=== PATIENT | female | born 1960 | race African-American/Black ===

== ENCOUNTER 2019-12-24 23:59 | Emergency (ER) | payer BC ==
--- OUTSIDE RECORDS SUMMARY | 2019-12-25 00:26 | XMS ---
:1960 Author Organization [facility] Care Team Providers Name Role Phone FRANCK BERRY Unavailable KRISTI, PAVELA Unavailable KRISTI, PAVELA Unavailable KRISTI, PAVELA Unavailable Jaswinder Pollock Unavailable Pollock, K Unavailable Pollock, K Unavailable Pollock, K Unavailable Pollock, K Unavailable Re-disclosure Warning The records that you are about to access may contain information from federally- assisted alcohol or drug abuse programs. If such information is present, then the following federally mandated warning applies: This information has been disclosed to you from records protected by federal confidentiality rules (42 CFR part 2). The federal rules prohibit you from making any further disclosure of this information unless further disclosure is expressly permitted by the written consent of the person to whom it pertains or as otherwise permitted by 42 CFR part 2. A general authorization for the release of medical or other information is NOT sufficient for this purpose. The Federal rules restrict any use of the information to criminally investigate or prosecute any alcohol or drug abuse patient.The records that you are about to access may contain highly sensitive health information, the redisclosure of which is protected by Article 27-F of the [facility] Public Health law. If you continue you may haveaccess to information: Regarding HIV / AIDS; Provided by facilities licensed or operated by the [facility] Office of Mental Health; or Provided by the [facility] Office for People With Developmental Disabilities. If such information is present, then the following [facility] mandated warning applies: This information has been disclosed to you from confidential records which are protected by state law. State law prohibits you from making any further disclosure of this information without the specific written consent of the person to whom it pertains, or as otherwise permitted by law. Any unauthorized further disclosure in violation of state law may result in a fine or assisted sentence or both. A general authorization for the release of medical or other information is NOT sufficient authorization for further disclosure. Encounters Encounter Providers Location Date Indications Data Source(s ) Outpatient Attender: FRANCK 09/09/2019 [facility] ([place] [facility]: Jaswinder 12:00:00 AM [facility] Poll[place] EDT Insurance Providers Payer Policy type Policy ID Covered Covered alliance party's Policy Pl an name / Coverage alliance party ID relationship to Marie Inf ormation type marie BC PPO [id number] SP [id number] BLUE [id number] PT [id number] CROSS IND BLUE PPO [id number] CROSS Surgeries/Procedures Procedure Description Date Indications Data Source(s) OFFICE/OUTPATIENT VISIT, 09/09/2019 [facility] ([facility] 12:00:00 AM EDT Medical) - 09/09/2019 12:00:00 AM EDT ROUTINE VENIPUNCTURE 09/09/2019 [facility] ([place] 12:00:00 AM EDT Medical) - 09/09/2019 12:00:00 AM EDT URINALYSIS, NONAUTO 09/09/2019 [facility] ([place] W/SCOPE 12:00:00 AM EDT Medical) - 09/09/2019 12:00:00 AM EDT Results ID Date Data Source [id number] 06/12/2019 12:00:00 AM EDT [facility] Name Value Range Interpretation Code Description Data Marly rce(s) Supporting Document(s ) SARS [facility] This lab was ordered by [facility] and reported by [facility]. Procedure
[2019-12-25 00:35] VITALS: TEMP 98.3; BMI 38.4
--- NOTE | 2019-12-25 01:34 | PDOC ---
History of Present Illness - General Chief Complaint: Blood Pressure Problem Stated Complaint: HYPERTENSION Time Seen by Provider: 12/25/19 00:55 History Source: Patient - History of Present Illness Initial Comments: 12/25/19 01:32 59-year-old female complaining of high blood pressure reading reports that there is a lot of stress that she has been having lately. Denies headache, dizziness, nausea, chest pain, diaphoresis. Patient reports that she took an extra dose of Norvasc prior to arrival now feels like her blood pressure is getting better. Patient reports that at work she was exposed to someone who is COVID positive patient would like to be tested for COVID. Patient denies any covert symptoms at this time. Past medical history of prediabetes, hypertension Past History - Medical History Allergies/Adverse Reactions: Allergies Allergy/AdvReac Type Severity Reaction Status Date / Time No Known Allergies Allergy Verified 12/25/19 00:35 Home Medications: Ambulatory Orders Amlodipine Besylate 10/03/12 Diazepam [Valium] 2 mg PO BID #10 tablet 10/03/12 Losartan/Hydrochlorothiazide [Losartan-Hctz 100-12.5 mg Tab] 10/03/12 Metoprolol/Hydrochlorothiazide [Metoprolol-Hctz 100-25 mg Tab] 10/03/12 Naproxen [Naprosyn] 500 mg PO BID #14 tablet 10/03/12 Famotidine [Pepcid] 40 mg PO DAILY #10 tablet 10/23/14 Ibuprofen [Motrin] 800 mg PO TID #20 tablet 10/23/14 Oxycodone HCl/Acetaminophen [Percocet 5-325 mg Tablet] 1 - 2 tab PO Q6H #20 tablet 10/23/14 HTN: Yes - Immunization History Immunization Up to Date: Yes - Psycho-Social/Smoking History Smoking Status: No Smoking History: Never smoked Number of Cigarettes Smoked Daily: 0 Cigars Per Day: 0 - Substance Abuse Hx (Audit-C & DAST Scrn) How often the patient has a drink containing alcohol: Never Score: In Men: 4 or > Positive; In Women: 3 or > Positive: 0 Screen Result (Pos requires Nsg. Audit-10AR): Negative In the last yr the pt used illegal drug/Rx for NonMed reason: No Score: Yes response is considered Positive: 0 Screen Result (Positive result requires Nsg. DAST-10): Negative *Physical Exam - Vital Signs Last Vital Signs Temp Pulse Resp BP Pulse Ox 98.3 F 69 20 189/83 H 100 12/25/19 00:00 12/25/19 01:03 12/25/19 01:03 12/25/19 01:03 12/25/19 01:03 - Physical Exam General Appearance: Yes: Appropriately Dressed Respiratory/Chest: positive: Lungs Clear, Normal Breath Sounds Cardiovascular: positive: Regular Rhythm, Regular Rate Gastrointestinal/Abdominal: positive: Normal Bowel Sounds, Soft. negative: Tender Extremity: positive: Normal Capillary Refill, Normal Inspection, Normal Range of Motion Integumentary: positive: Normal Color, Dry, Warm Neurologic: positive: Fully Oriented, Alert, Normal Mood/Affect Medical Decision Making - Medical Decision Making A:Blood pressure hypertension, COVID exposure P: monitor blood pressure give dose of clonidine and reevaluate. COVID swab sent pending result 12/25/19 02:08 Blood pressure noted to be 200/95 prior to discharge patient on max dose of her regular blood pressure medication will give a small dose of clonidine and reevaluate. 12/25/19 05:31 blood pressure prior to discharge 151/93 patient remained asymptomatic. Patient advised to follow-up with her PCP tomorrow for blood pressure medication adjustment patient verbalized understanding. Discharge - Discharge Information Problems reviewed: Yes Clinical Impression/Diagnosis: Exposure to COVID-19 virus Hypertension Qualifiers: Hypertension type: unspecified Qualified Code(s): I10 - Essential (primary) hypertension Condition: Fair Disposition: HOME - Follow up/Referral - Patient Discharge Instructions Patient Printed Discharge Instructions: How to Monitor Your Blood Pressure at Home Additional Instructions: Monitor your blood pressure at home. Follow-up with your primary doctor for blood pressure medication adjustment. Return to the emergency room for any worsening symptoms - Post Discharge Activity Work/Back to School Note: Back to Work
[2019-12-25] MEDS ORDERED: cloNIDine HCL 0.1 MG TABLET PO ONE (02:05)
[2019-12-25] MEDS ORDERED: cloNIDine HCL 0.1 MG TABLET ONE (02:10)
[2019-12-25 04:15] VITALS: BP 151/93; PULSE 67
== END 2019-12-25 04:00 | disposition home or self-care (01) ==
LOC: JER 23:59
DX: Z03.818 Encounter for observation for suspected exposure to other biological agents ruled out (principal); I10 Essential (primary) hypertension
CPT/HCPCS: 99283-25; C9803; J0735; U0003